=== PATIENT | male | born 1950 | race Caucasian/White ===

== ENCOUNTER 2016-12-22 11:15 | Emergency (ER) | payer MEDICARE, MEDICAID ==
[~2016-12-22] VITALS: Ht 165.1 cm; Wt 56.7 kg
[~2016-12-22 11:15] MED LIST: ASPI81CH43; HYDR-1917; INSUPOW; MELO15TA4; METF-372; SIMV10TA84
[2016-12-22 11:24] VITALS: BP 150/90
[2016-12-22 11:58] LABS: Basophils # (auto) 0 uL; Basophils % (auto) 0.4 % (0.0-2.0); Eosinophils # (auto) 0.1 uL; Lymphocytes # (auto) 1.2 uL; Lymphocytes % (auto) 11.6 % (10.0-50.0); Mean Corpuscular Hemoglobin 30.6 pg (28.0-32.0); Mean Corpuscular Hgb Conc. 33.4 g/dL (32.0-36.0); Mean Corpuscular Volume 91.6 fL (80.0-100.0); Mean Platelet Volume 7.4 fL (6.9-10.8); Monocytes # (auto) 0.7 uL; Monocytes % (auto) 6.7 % (0.0-12.0); Neutrophils # (auto) 8.2 uL; Neutrophils % (auto) 80.3 % (37.0-80.0); Nucleated Red Blood Cells % 0.1 %; Platelet Count (auto) 305 10^3/uL (140-450); Red Cell Distribution Width 13.8 % (11.8-14.3); White Blood Cell 10.2 10^3/uL (4.4-10.8)
[2016-12-22 12:24] LABS: Albumin 3.8 g/dL (3.4-5.0); Alkaline Phosphatase 96 U/L (45-117); Anion Gap 8 (5-15); Aspartate Aminotransferase 21 U/L (15-37); BUN/Creatinine Ratio 13.4; Bilirubin, Total 0.6 mg/dL (0.2-1.0); Blood Urea Nitrogen 13 mg/dL (7-18); Calcium 8.7 mg/dL (8.5-10.1); Carbon Dioxide 24 mmol/L (21-32); Chloride 106 mmol/L (98-107); GFR African American 100 mL/min; GFR Non-African American 83 mL/min; Glucose 135 mg/dL (74-106); Potassium 4.3 mmol/L (3.5-5.1); Sodium 138 mmol/L (136-145); Total Protein 7.6 g/dL (6.4-8.2)
== END 2016-12-22 12:11 | disposition left against medical advice (07) ==
LOC: ER 11:15 → EDBD 11:15 → ER 12:11
DX: R73.9 Hyperglycemia, unspecified (principal); Z53.21 Procedure and treatment not carried out due to patient leaving prior to being seen by health care provider
CPT/HCPCS: 36415; 80053; 84484; 85025

== ENCOUNTER 2019-08-08 01:47 | Inpatient (IN) | payer OTHER, MEDICAID ==
[~2019-08-08] VITALS: Ht 165.1 cm; Wt 90.0 kg
[~2019-08-08 01:47] MED LIST changes: -MELO15TA4; +MELO1TAB56
[2019-08-08] MEDS ORDERED: SODIUM CHLORIDE 0.9% 1,000 ML IV ONE ×2 (02:30→03:00)
[2019-08-08] MEDS ORDERED: InsuLIN REG 1unit/0.01ml Soln (100units/ml) IV ONE (02:30)
[2019-08-08 02:46] LABS: Hematocrit 45.1 % (41.0-53.0); Hemoglobin 12.9 g/dL (13.5-17.5); Mean Corpuscular Hemoglobin 30.2 pg (28.0-32.0); Mean Corpuscular Hgb Conc. 28.7 g/dL (32.0-36.0); Mean Corpuscular Volume 105.1 fL (80.0-100.0); Platelet Count (auto) 478 10^3/uL (140-450); Red Blood Cells 4.29 10^6/uL (4.5-5.90); Red Cell Distribution Width 14.6 % (11.8-14.3)
[2019-08-08 03:00] LABS: Basophils % (manual) 0 (0.0-2.0); Blast Cells 0; Metamyelocytes % 0; Myelocytes % 0; Promyelocytes % 0; Reactive Lymphocytes 0; White Blood Cell 39.2 10^3/uL (4.4-10.8)
[2019-08-08 03:01] LABS: Albumin 3.6 g/dL (3.4-5.0); Anion Gap 34 (5-15); Blood Alcohol < 3.0 mg/dL (0-5); Chloride 90 mmol/L (98-107); Sodium 128 mmol/L (136-145)
[2019-08-08 03:04] LABS: Alanine Aminotransferase 21 U/L (16-61); Aspartate Aminotransferase 11 U/L (15-37); Bilirubin, Total 1.7 mg/dL (0.2-1.0); GFR African American 36 mL/min; GFR Non-African American 30 mL/min; Total Protein 7.2 g/dL (6.4-8.2)
[2019-08-08 03:10] LABS: Alkaline Phosphatase 128 U/L (45-117)
[2019-08-08 03:11] LABS: Lactic Acid w/Reflex 13.9 mmol/L (0.4-2.0)
[2019-08-08 03:12] LABS: BUN/Creatinine Ratio 19.2; Blood Urea Nitrogen 45 mg/dL (7-18); Carbon Dioxide 4 mmol/L (21-32); Glucose 1028 mg/dL (74-106); Potassium 7.2 mmol/L (3.5-5.1)
[2019-08-08] MEDS ORDERED: SODIUM BICARBONATE 8.4 % INJ 50ML VIAL IV ONE ×2 (03:15→06:30)
[2019-08-08] MEDS ORDERED: VANCOMYCIN 1GM/250ML 250 ML IV ONE (03:15)
[2019-08-08] MEDS ORDERED: CALCIUM GLUC 4.65meq/50ml D5AE 50 ML IV ONE (03:15)
[2019-08-08] MEDS ORDERED: PIPERACILLIN-TAZOB 3.375GM 100 ML IV ONE (03:15)
[2019-08-08 03:21] LABS: Magnesium 2.6 mg/dL (1.6-2.6)
[2019-08-08] MEDS ORDERED: InsuLIN R (HUMAN) 100 UNITS in SODIUM CHL 0.9% 99 ML IV SCH ×3 (03:21→06:03)
[2019-08-08 03:28] LABS: INR 1.11 (0.9-1.15); Partial Thromboplastin Time 27.9 sec (23.64-32.05)
[2019-08-08] MEDS ORDERED: InsuLIN REG 1unit/0.01ml Soln (100units/ml) ONE (03:28)
[2019-08-08] MEDS ORDERED: DEXTROSE (50%) 50ML SYRG IV PRN ×4 (03:30→15:30)
[2019-08-08 03:33] LABS: Alcohol, Urine < 3.0 mg/dL (0-10); Amphetamine Screen, Urine NEGATIVE (NEGATIVE); Barbiturate Scree,Urine NEGATIVE (NEGATIVE); Benzodiazephine Screen, Urine NEGATIVE (NEGATIVE); Cannabinoid Screen, Urine NEGATIVE (NEGATIVE); Cocaine Screen, Urine NEGATIVE (NEGATIVE); Opiate Scree,Urine NEGATIVE (NEGATIVE); Phencyclidine Screen, Urine NEGATIVE (NEGATIVE)
[2019-08-08 03:36] LABS: Urine Bacteria FEW /hpf (None Seen); Urine Blood TRACE /uL (Negative); Urine Mucus FEW (None Seen); Urine Specific Gravity 1.018 (1.001-1.035); Urine WBC <1 /hpf (0 - 3)
[2019-08-08] MEDS ORDERED: NOREPINEPHRINE 8 MG/250ML KIT 250 ML IV ONE (04:07)
[2019-08-08] MEDS ORDERED: SODIUM CHLORIDE 0.9% 250 ML IV ONE (04:15)
[2019-08-08] MEDS ORDERED: NOREPINEPHRINE 8 MG/250ML KIT 250 ML IV SCH (04:15)
[2019-08-08] MEDS: ACCU-CHEK COMFORT CURVE STRIP VI SCH ×10 (04:57→21:30)
[2019-08-08] MEDS: InsuLIN R (HUMAN) 100 UNITS in SODIUM CHL 0.9% 99 ML IV SCH ×2 (06:05→07:15)
[2019-08-08] MEDS ORDERED: ONDANSETRON HCL 4 MG/2 ML VIAL IV PRN (06:15)
[2019-08-08] MEDS ORDERED: SODIUM BICARBONATE 50ML VIAL 100 ML in SOD CHL 0.45% 1,000 ML IV ONE (06:15)
[2019-08-08] MEDS ORDERED: VANCOMYCIN PER PHARMACY 0 MG IV SCH (06:15)
[2019-08-08] MEDS ORDERED: MORPHINE SULF INJ 2 MG/ML SYRINGE 1ML IV PRN (06:15)
[2019-08-08] MEDS ORDERED: NITROGLYCERIN 0.4 MG SL TAB SL PRN (06:15)
[2019-08-08 06:22] LABS: Band Neutrophils % (manual) 11; Lymphocytes % (manual) 5 (10.0-50.0); Monocytes % (manual) 7 (0-12)
[2019-08-08] MEDS: SODIUM CHLORIDE 0.9% 1,000 ML IV SCH ×2 (06:27→08:40)
[2019-08-08] MEDS ORDERED: ACCU-CHEK COMFORT CURVE STRIP VI SCH ×2 (07:30→16:00)
[2019-08-08 07:50] LABS: Eosinophils % (manual) 0 (0-7)
[2019-08-08 09:04] LABS: Albumin 3.5 g/dL (3.4-5.0); Calcium 8.9 mg/dL (8.5-10.1); Potassium 3.8 mmol/L (3.5-5.1)
[2019-08-08 09:10] LABS: BUN/Creatinine Ratio 18.7; Bilirubin, Total 1.3 mg/dL (0.2-1.0)
[2019-08-08] MEDS ORDERED: ENOXAPARIN SOD 40 MG/0.4 ML SYRINGE SC SCH (10:00)
[2019-08-08] MEDS ORDERED: PANTOPRAZOLE 40 MG/10 ML VIAL INJ IV SCH (10:00)
[2019-08-08] MEDS ORDERED: SODIUM CHLORIDE 0.9% 1,000 ML IV SCH ×2 (10:03→12:03)
[2019-08-08 12:00] LABS: BUN/Creatinine Ratio 20.8; Calcium 8.4 mg/dL (8.5-10.1); Potassium 3.8 mmol/L (3.5-5.1)
[2019-08-08] MEDS ORDERED: PIPERACILLIN-TAZOB 3.375GM 100 ML IV SCH (12:00)
[2019-08-08] MEDS ORDERED: ENOXAPARIN SOD 60 MG/0.6 ML SYRINGE SC ONE (12:15)
[2019-08-08] MEDS ORDERED: INSULIN LANTUS (GLARGINE) 1 /0.01ml (100units/ml) SC ONE (13:15)
[2019-08-08] MEDS: PIPERACILLIN-TAZOB 2.25GM 50 ML IV SCH ×2 (13:33→18:41)
[2019-08-08] MEDS ORDERED: ASPirin 81 mg TAB PO ONE (13:45)
[2019-08-08] MEDS: SOD CHL 0.45% 1,000 ML IV SCH (15:45)
[2019-08-08] MEDS ORDERED: InsuLIN REG 1unit/0.01ml Soln (100units/ml) SC SCH (16:00)
[2019-08-08] MEDS: InsuLIN REG 1unit/0.01ml Soln (100units/ml) SC SCH ×2 (17:39→21:30)
[2019-08-08 21:23] LABS: BUN/Creatinine Ratio 22.6; Calcium 7.7 mg/dL (8.5-10.1); Potassium 3.8 mmol/L (3.5-5.1)
[2019-08-08] MEDS: ATORVASTATIN 20 MG TAB PO SCH (23:47)
[2019-08-08] MEDS: METOPROLOL TARTRATE 25 MG TAB PO SCH (23:48)
[2019-08-08] MEDS: ENOXAPARIN SOD 100 MG/1 ML SYRINGE SC SCH (23:48)
[2019-08-08] MEDS: INSULIN LANTUS (GLARGINE) 1 /0.01ml (100units/ml) SC SCH (23:48)
[2019-08-09] MEDS: SOD CHL 0.45% 1,000 ML IV SCH ×3 (02:29→21:30)
[2019-08-09] MEDS: PIPERACILLIN-TAZOB 2.25GM 50 ML IV SCH ×2 (02:29→06:00)
[2019-08-09] MEDS: ACCU-CHEK COMFORT CURVE STRIP VI SCH ×6 (02:31→20:00)
[2019-08-09] MEDS: InsuLIN REG 1unit/0.01ml Soln (100units/ml) SC SCH ×6 (02:40→21:13)
[2019-08-09 07:35] LABS: Basophils # (auto) 0 10 ^3/uL (0-0.2); Basophils % (auto) 0.2 % (0.0-2.0); Eosinophils # (auto) 0.1 10 ^3/uL (0-0.8); Eosinophils % (auto) 0.4 % (0.0-7.0); Hemoglobin 11.6 g/dL (13.5-17.5); Lymphocytes # (auto) 1.5 10 ^3/uL (0.4-5.4); Lymphocytes % (auto) 8.1 % (10.0-50.0); Mean Corpuscular Hemoglobin 30.3 pg (28.0-32.0); Mean Corpuscular Hgb Conc. 34.3 g/dL (32.0-36.0); Mean Corpuscular Volume 88.4 fL (80.0-100.0); Monocytes # (auto) 1.3 10 ^3/uL (0-1.3); Monocytes % (auto) 7.1 % (0.0-12.0); Neutrophils # (auto) 15.8 10 ^3/uL (1.6-8.6); Neutrophils % (auto) 84.2 % (37.0-80.0); Platelet Count (auto) 289 10^3/uL (140-450); Red Blood Cells 3.84 10^6/uL (4.5-5.90); White Blood Cell 18.7 10^3/uL (4.4-10.8)
[2019-08-09 07:46] LABS: Calcium 8.2 mg/dL (8.5-10.1); Potassium 3.3 mmol/L (3.5-5.1)
[2019-08-09 07:58] LABS: BUN/Creatinine Ratio 19.4; Bilirubin, Total 1.3 mg/dL (0.2-1.0); Total Protein 6.1 g/dL (6.4-8.2)
[2019-08-09] MEDS: INSULIN LANTUS (GLARGINE) 1 /0.01ml (100units/ml) SC SCH ×2 (08:04→21:13)
[2019-08-09] MEDS ORDERED: HEPARIN DRIP/D5W 100UNITS/ML 250 ML IV SCH (09:02)
[2019-08-09] MEDS ORDERED: CLOPIDOGREL BISULFATE 75 MG TAB PO ONE ×3 (09:15→14:45)
[2019-08-09] MEDS ORDERED: HEPARIN SODIUM (PORCINE) 5000 UNITS/ML 1ML VIAL IV ONE (09:15)
[2019-08-09] MEDS ORDERED: ONDANSETRON HCL 4 MG/2 ML VIAL IV ONE (09:30)
[2019-08-09] MEDS: METOPROLOL TARTRATE 25 MG TAB PO SCH ×2 (10:00→22:00)
[2019-08-09] MEDS ORDERED: ASPirin 81 mg TAB PO SCH (10:00)
[2019-08-09] MEDS ORDERED: INSULIN LANTUS (GLARGINE) 1 /0.01ml (100units/ml) SC SCH (10:00)
[2019-08-09] MEDS: VANCOMYCIN 1GM/250ML 250 ML IV SCH (10:53)
[2019-08-09] MEDS: ASPirin 81 mg TAB PO SCH (10:53)
[2019-08-09] MEDS: ENOXAPARIN SOD 100 MG/1 ML SYRINGE SC SCH (10:54)
[2019-08-09] MEDS: PANTOPRAZOLE 40 MG TAB PO SCH (10:54)
[2019-08-09] MEDS ORDERED: POTASSIUM CHLORIDE 20 MEQ, LIDOCAINE 1% (LOCAL ANESTH.) 2 ML in SODIUM CHL 0.9% 100 ML IV ONE (11:00)
[2019-08-09] MEDS ORDERED: POTASSIUM PHOSPHATE 44 MEQ in D5W 5% 250 ML IV ONE (12:30)
[2019-08-09] MEDS ORDERED: LIDOCAINE 2%HCL (LOCAL ANESTH.) INJ 20ML MDV ONE (12:55)
[2019-08-09] MEDS ORDERED: MIDAZOLAM HCL 1MG/1ML-2 ML VIAL ONE (13:14)
[2019-08-09] MEDS ORDERED: fentaNYL CITRATE 100 MCG/2 ML VL ONE (13:14)
[2019-08-09] MEDS ORDERED: SODIUM CHL 0.9% 50 ML ONE (13:14)
[2019-08-09] MEDS ORDERED: ANGIOMAX 250 MG VIAL IV ONE (13:14)
[2019-08-09] MEDS ORDERED: HEPARIN SODIUM (PORCINE) 5000 UNITS/ML 1ML VIAL ONE (13:18)
[2019-08-09] MEDS ORDERED: VERAPAMIL 2.5MG/ML INJ 2ML VIAL IV ONE (13:18)
[2019-08-09] MEDS ORDERED: IODIXANOL 320MG/ML 100ML BTL IV ONE (13:41)
[2019-08-09] MEDS ORDERED: diphenhdrAMINE HCL 50 MG/1 ML VL ONE (13:45)
[2019-08-09] MEDS ORDERED: CLOPIDOGREL 300 MG TAB ONE (13:49)
[2019-08-09] MEDS ORDERED: MORPHINE SULF INJ 2 MG/ML SYRINGE 1ML IV PRN (14:45)
[2019-08-09] MEDS ORDERED: NITROGLYCERIN 0.4 MG SL TAB SL PRN (14:45)
--- NOTE | 2019-08-09 16:40 | NUR ---
Telemetry admit from [facility]KE[facility] admitted to Telemetry unit after SBAR received. Patient oriented to primary RN, unit, room, bed, and unit policies regarding patient care. Patient now on continuous telemetry monitoring. Vasc Band to right wrist, no bleeding noted. Patient alert to person and place. Patient weighed by bedscale and encouraged to call if they need something. All questions and concerns addressed, patient verbalized understanding. Call light placed within reach and bed alarm on for safety.
--- NOTE | 2019-08-09 17:30 | NUR ---
Vasc Band removed, no bleeding to site. Dressed with gauze and Tegaderm.
--- NOTE | 2019-08-09 17:35 | NUR ---
Out of bed Patient got out of bed to chair awaiting dinner. Refused to go back to bed. States he will answer questions for admission after dinner.
[2019-08-09] MEDS: PIPERACILLIN-TAZOB 3.375GM 100 ML IV SCH ×2 (17:36→18:00)
[2019-08-09 19:59] VITALS: BP 119/65
[2019-08-09 22:00] VITALS: BP 97/55
--- NOTE | 2019-08-09 22:00 | NUR ---
Patient refused one time dose of K rider Patient states he wants to be left alone and wants to sleep, he states he does not need it. Provided education on the need for potassium and side effects. Patient still refused. Will continue to monitor patient Q1 and PRN.
[2019-08-09] MEDS: ATORVASTATIN 20 MG TAB PO SCH (22:17)
[2019-08-10] MEDS: InsuLIN REG 1unit/0.01ml Soln (100units/ml) SC SCH ×6 (00:54→22:00)
[2019-08-10] MEDS: VANCOMYCIN 1GM/250ML 250 ML IV SCH (02:02)
[2019-08-10] MEDS: ACCU-CHEK COMFORT CURVE STRIP VI SCH ×6 (04:00→21:40)
[2019-08-10 05:00] VITALS: BP 97/48
[2019-08-10] MEDS: PIPERACILLIN-TAZOB 3.375GM 100 ML IV SCH ×2 (06:26)
[2019-08-10] MEDS: INSULIN LANTUS (GLARGINE) 1 /0.01ml (100units/ml) SC SCH (06:31)
--- NOTE | 2019-08-10 07:30 | NUR ---
Opening Shift Note Assumed care of patient, awake and alert. No S/S of distress/SOB or pain. Instructed on POC and to call for assist PRN, will continue to monitor for changes Q1hr and PRN. Fall precautions in place per safety protocol.
--- NOTE | 2019-08-10 07:30 | NUR ---
End of Shift Note Endorsed care to dayshift RN. At this time patient has no s/s of distress or SOB, no complaints.
[2019-08-10] MEDS: SOD CHL 0.45% 1,000 ML IV SCH (07:40)
[2019-08-10 09:00] VITALS: BP 130/68
--- NOTE | 2019-08-10 10:00 | NUR ---
Hospitalist MD Wade at bedside, aware of patient status. New orders for physical therapy at this time, will carry out new orders and cont to monitor patient.
[2019-08-10 10:25] LABS: Basophils # (auto) 0 10 ^3/uL (0-0.2); Basophils % (auto) 0.4 % (0.0-2.0); Eosinophils # (auto) 0 10 ^3/uL (0-0.8); Eosinophils % (auto) 0.3 % (0.0-7.0); Hemoglobin 12.4 g/dL (13.5-17.5); Lymphocytes # (auto) 0.9 10 ^3/uL (0.4-5.4); Lymphocytes % (auto) 9.9 % (10.0-50.0); Mean Corpuscular Hemoglobin 30.9 pg (28.0-32.0); Mean Corpuscular Hgb Conc. 32.5 g/dL (32.0-36.0); Mean Corpuscular Volume 94.8 fL (80.0-100.0); Monocytes # (auto) 0.7 10 ^3/uL (0-1.3); Monocytes % (auto) 7.7 % (0.0-12.0); Neutrophils # (auto) 7.6 10 ^3/uL (1.6-8.6); Neutrophils % (auto) 81.7 % (37.0-80.0); Platelet Count (auto) 161 10^3/uL (140-450); Red Blood Cells 4.01 10^6/uL (4.5-5.90); Red Cell Distribution Width 14.9 % (11.8-14.3); White Blood Cell 9.3 10^3/uL (4.4-10.8)
[2019-08-10] MEDS: PANTOPRAZOLE 40 MG TAB PO SCH (10:27)
[2019-08-10] MEDS: CLOPIDOGREL BISULFATE 75 MG TAB PO SCH (10:27)
[2019-08-10] MEDS: ASPirin 81 mg TAB PO SCH (10:27)
[2019-08-10] MEDS: METOPROLOL TARTRATE 25 MG TAB PO SCH ×2 (10:28→21:40)
[2019-08-10] MEDS ORDERED: DEXTROSE (50%) 50ML SYRG IV PRN (11:30)
--- NOTE | 2019-08-10 12:00 | NUR ---
PT Physical therapy at bedside. Patient ambulated with a stead gait with walker around the unit. Will cont to monitor patient.
[2019-08-10 12:42] LABS: BUN/Creatinine Ratio 16.1; Calcium 8.4 mg/dL (8.5-10.1); Potassium 3.5 mmol/L (3.5-5.1)
[2019-08-10 14:35] VITALS: BP 118/69
--- NOTE | 2019-08-10 15:07 | NUR ---
Nutrition Assessment Notes please see attached link for complete assessment [employer] needs ABW 80 [id number] kcals (20-23 kcal/kgABW), Est Protein needs: 80-88 gms/day (1.0-1.1 gm/kgABW). Will continue to monitor and reassess prn. Addendum: 08/10/19 at [address] Amended: Links added.
[2019-08-10] MEDS: INSULIN NPH Isophane (HUMAN) 1unit/0.01ml Susp(100units/ml) SC SCH (18:15)
--- NOTE | 2019-08-10 19:06 | NUR ---
ENDORSED CARE TO NIGHT RN VIKTORIYA. PATIENT RESTING IN BED, NO DISTRESS, SOB, OR PAIN NOTED AT THIS TIME.
[2019-08-10] MEDS: ATORVASTATIN 20 MG TAB PO SCH (21:39)
[2019-08-10 22:00] VITALS: BP 130/78
[2019-08-11] VITALS (7 sets, daily range): BP systolic 132–150; BP diastolic 67–88
[2019-08-11] MEDS: INSULIN NPH Isophane (HUMAN) 1unit/0.01ml Susp(100units/ml) SC SCH ×2 (06:13→18:11)
[2019-08-11] MEDS: ACCU-CHEK COMFORT CURVE STRIP VI SCH ×4 (06:28→22:00)
[2019-08-11] MEDS: InsuLIN REG 1unit/0.01ml Soln (100units/ml) SC SCH ×4 (06:34→22:00)
--- NOTE | 2019-08-11 07:18 | NUR ---
End of Shift Note Endorsed care to dayshift RN. At this time patient has no s/s of distress or SOB.
[2019-08-11] MEDS ORDERED: ATOR40TA52 PO (08:26)
[2019-08-11] MEDS ORDERED: PANT40T PO (08:26)
[2019-08-11] MEDS ORDERED: CLOP75TA28 PO (08:26)
[2019-08-11] MEDS ORDERED: ASPI81CH43 PO (08:26)
[2019-08-11] MEDS: ASPirin 81 mg TAB PO SCH (09:37)
[2019-08-11] MEDS: levoFLOXacin 500 MG TAB PO SCH (09:37)
[2019-08-11] MEDS: METOPROLOL TARTRATE 25 MG TAB PO SCH ×2 (09:37→21:49)
[2019-08-11] MEDS: CLOPIDOGREL BISULFATE 75 MG TAB PO SCH (09:38)
[2019-08-11] MEDS: PANTOPRAZOLE 40 MG TAB PO SCH (09:38)
--- NOTE | 2019-08-11 10:10 | NUR ---
DR MARIA ON UNIT
--- NOTE | 2019-08-11 11:30 | NUR ---
PATIENT REQUESTING PAIN MEDICATION FOR CHRONIC BACK PAIN. SPOKE TO DR MARIA, SHE WILL PLACE ORDER
[2019-08-11] MEDS: HYDROcodone-ACET 5/325MG TAB PO PRN ×2 (15:41→21:51)
--- NOTE | 2019-08-11 21:00 | NUR ---
PT OOB AMBULATING IN ROOM WITH WALKER;NO C/O PAIN;WILL CONTINUE TO MONITOR.
[2019-08-11] MEDS: ATORVASTATIN 20 MG TAB PO SCH (21:51)
[2019-08-12] MEDS: InsuLIN REG 1unit/0.01ml Soln (100units/ml) SC SCH ×4 (05:50→21:56)
[2019-08-12] MEDS: INSULIN NPH Isophane (HUMAN) 1unit/0.01ml Susp(100units/ml) SC SCH (05:50)
[2019-08-12] MEDS: ACCU-CHEK COMFORT CURVE STRIP VI SCH ×4 (05:50→21:52)
[2019-08-12 06:00] VITALS: BP 151/81
[2019-08-12 08:00] VITALS: BP 129/57
[2019-08-12 09:01] VITALS: BP 129/57
[2019-08-12] MEDS: ASPirin 81 mg TAB PO SCH (09:06)
[2019-08-12] MEDS: levoFLOXacin 500 MG TAB PO SCH (09:07)
[2019-08-12] MEDS: METOPROLOL TARTRATE 25 MG TAB PO SCH ×2 (09:07→21:52)
[2019-08-12] MEDS: PANTOPRAZOLE 40 MG TAB PO SCH (09:08)
[2019-08-12] MEDS: CLOPIDOGREL BISULFATE 75 MG TAB PO SCH (09:08)
[2019-08-12] MEDS ORDERED: INSULIN NPH Isophane (HUMAN) 1unit/0.01ml Susp(100units/ml) SC ONE (09:45)
--- NOTE | 2019-08-12 11:10 | NUR ---
DR MARIA ON UNIT. ORDERS RECEIVED AND CARRIED OUT.
[2019-08-12] MEDS ORDERED: metFORMIN HYDROCHLORIDE 500 MG TAB PO ONE (11:30)
[2019-08-12 12:33] VITALS: BP 144/70
[2019-08-12 16:56] VITALS: BP 132/68
[2019-08-12] MEDS ORDERED: INSULIN NPH Isophane (HUMAN) 1unit/0.01ml Susp(100units/ml) SC SCH ×2 (17:30→18:00)
[2019-08-12] MEDS: metFORMIN HYDROCHLORIDE 500 MG TAB PO SCH (17:57)
--- NOTE | 2019-08-12 19:25 | NUR ---
RECEIVED PATIENT FROM DAY SHIFT RN. PATIENT RESTING IN BED. NO S/S OF DISTRESS NOTED. DENIED PAIN FOR NOW. PATIENT WOULD LIKE TO TAKE A SHOWER. AND MD ORDERED OKAY TO SHOWER. WILL ASSIST PATIENT LATER. POC INSTRUCTED AND ENCOURAGED PATIENT TO CALL FOR DISTILLERY LABORER IF NEEDED. BED IN LOWEST POSITION WITH SIDE RAILS UP X 2. CALL [facility] WITHIN REACH. ALARM ON. CONTINUE TO MONITOR FOR CHANGES Q1H AND PRN.
--- NOTE | 2019-08-12 20:45 | NUR ---
PATIENT FINISHED SHOWER, TOLERATED WELL. ASSISTED PATIENT BACK TO BED. NO S/S OF DISTRESS NOTED. CONTINUE TO MONITOR.
[2019-08-12] MEDS: ATORVASTATIN 20 MG TAB PO SCH (21:52)
[2019-08-12] MEDS: HYDROcodone-ACET 5/325MG TAB PO PRN (21:52)
--- NOTE | 2019-08-12 21:57 | NUR ---
ACCU-CHECK, BS 217. INSULIN GIVEN ORDERED. INSTRUCTED PATIENT ON S/S OF HYPOGLYCEMIA. PATIENT VERBALIZED UNDERSTANDING. CONTINUE TO MONITOR.
--- NOTE | 2019-08-12 21:57 | NUR ---
PATIENT C/O PAIN @ 10/17. MEDICATED PATIENT ORDERED. CONTINUE TO MONITOR.
[2019-08-12 22:00] VITALS: BP 132/66
--- NOTE | 2019-08-13 01:26 | NUR ---
PATIENT SLEEPING. NO S/S OF DISTRESS NOTED. CONTINUE TO MONITOR.
[2019-08-13 05:18] VITALS: BP 137/79
[2019-08-13] MEDS: InsuLIN REG 1unit/0.01ml Soln (100units/ml) SC SCH ×2 (06:50→12:26)
[2019-08-13] MEDS: ACCU-CHEK COMFORT CURVE STRIP VI SCH ×2 (06:50→11:30)
--- NOTE | 2019-08-13 06:50 | NUR ---
ACCU-CHECK, BS 122. NO COVERAGE. CONTINUE TO MONITOR.
[2019-08-13 08:00] VITALS: BP 120/65
[2019-08-13] MEDS ORDERED: INSULIN NPH Isophane (HUMAN) 1unit/0.01ml Susp(100units/ml) SC SCH ×2 (08:00→12:00)
[2019-08-13] MEDS: metFORMIN HYDROCHLORIDE 500 MG TAB PO SCH (08:38)
[2019-08-13] MEDS: METOPROLOL TARTRATE 25 MG TAB PO SCH (10:00)
[2019-08-13 11:19] VITALS: BP 120/65
[2019-08-13 12:00] VITALS: BP 120/65
[2019-08-13] MEDS: levoFLOXacin 500 MG TAB PO SCH (12:11)
[2019-08-13] MEDS: ASPirin 81 mg TAB PO SCH (12:11)
[2019-08-13] MEDS: PANTOPRAZOLE 40 MG TAB PO SCH (12:11)
[2019-08-13] MEDS: CLOPIDOGREL BISULFATE 75 MG TAB PO SCH (12:11)
--- NOTE | 2019-08-13 13:00 | NUR ---
Assessment Patient is a 69-year-old male who is alert and oriented. Prior to admission patient lived with roommates and functioned independently. Patient informed me he has a walker and a scooter for home use. Per patient he will return home to his prior living arrangements post discharge and will need a taxi voucher. Advised patient there is a social service consult for home health safety evaluation, physical therapy, medication management and vitals. Informed patient clinical information will be faxed to contracted agencies. Informed patient he has the right to participate in all discharge planning. Patient verbalized understanding and agreed to discharge plan. Faxed clinical information to [facility] and [facility] . Per Cindy with [facility] patient has been accepted and service to start within 24-48hrs upon d/c day. Obtain authorization from [facility] for home health [id number]. Informed KATHRYN Roberts. Addendum: 08/13/19 at 1645 by JOY ROCHA Amended: Links added.
--- NOTE | 2019-08-13 15:23 | NUR ---
Discharge instructions given as ordered. Encourage to follow up with PMD as instructed. All questions and concerns addressed. Patient verbalized understanding. Medication reconciliation form completed and copy given to patient. No Home medications held in Pharmacy and none to be returned to patient, and no needed vaccines. IV removed with catheter intact, pressure dressing applied. Telemetry unit returned to ICU. Patient taken to vehicle via wheelchair with all personal belongings, accompanied by staff and family member. No distress noted at time of departure.
--- NOTE | 2019-08-13 15:55 | NUR ---
assessment Per consult lives with roommates and has no family. Patient discharged home prior to assessment. Addendum: 08/13/19 at 1603 by Taylor Leyva Amended: Links added.
== END 2019-08-13 15:30 | disposition home health service (06) | DRG 981 ==
LOC: EDBD 01:47 → ER 01:47 → TELE 01:48 → TELE-WESTW 08-09 17:06
PROVIDERS: ADMIT Nurse Practitioner; ATTEND Internal Medicine
PROC: 027034Z Dilation of Coronary Artery, One Artery with Drug-eluting Intraluminal Device, Percutaneous Approach (ICD-10-PCS; principal; 2019-08-09)
PROC: 02703ZZ Dilation of Coronary Artery, One Artery, Percutaneous Approach (ICD-10-PCS; 2019-08-09)
PROC: 4A023N7 Measurement of Cardiac Sampling and Pressure, Left Heart, Percutaneous Approach (ICD-10-PCS; 2019-08-09)
PROC: B2111ZZ Fluoroscopy of Multiple Coronary Arteries using Low Osmolar Contrast (ICD-10-PCS; 2019-08-09)
PROC: B2151ZZ Fluoroscopy of Left Heart using Low Osmolar Contrast (ICD-10-PCS; 2019-08-09)
DX: E11.10 Type 2 diabetes mellitus with ketoacidosis without coma (principal); I21.4 Non-ST elevation (NSTEMI) myocardial infarction; G93.41 Metabolic encephalopathy; N17.0 Acute kidney failure with tubular necrosis; R65.10 Systemic inflammatory response syndrome (SIRS) of non-infectious origin without acute organ dysfunction; E87.1 Hypo-osmolality and hyponatremia; E86.0 Dehydration; E87.5 Hyperkalemia; E66.01 Morbid (severe) obesity due to excess calories; I25.10 Atherosclerotic heart disease of native coronary artery without angina pectoris; E78.5 Hyperlipidemia, unspecified; E87.6 Hypokalemia; Z53.20 Procedure and treatment not carried out because of patient's decision for unspecified reasons; R00.0 Tachycardia, unspecified; I95.9 Hypotension, unspecified; Z79.4 Long term (current) use of insulin; Z68.36 Body mass index [BMI] 36.0-36.9, adult
CPT/HCPCS: 36415; 36600; 70450; 71045; 72125; 80048; 80053; 80061; 80202; 80307; 80320; 81001; 82010; 82565; 82728; 82805; 82962; 83036; 83605; 83735; 83880; 84100; 84443; 84484; 85007; 85025; 85027; 85379; 85610; 85730; 86703; 86803; 86850; 86900; 86901; 87040; 87081; 87086; 93005; 93306; 99152; 99153; 99291; C1874; C1887; C9113; G0378; J0610; J1815; J2001; J2250; J2405; J2543; J7060; Q9967